=== PATIENT | female | born 1990 | race Two or more races ===

== ENCOUNTER 2018-05-02 10:08 | Emergency (ER) | payer SELFPAY ==
[2018-05-02 10:20] VITALS: TEMP 98; BMI 22.6
--- NOTE | 2018-05-02 10:57 | PDOC ---
History of Present Illness - General Chief Complaint: Pain, Acute Stated Complaint: RT SIDE, ABD PAIN Time Seen by Provider: 05/02/18 10:44 History Source: Patient Exam Limitations: No Limitations - History of Present Illness Initial Comments: CHIEF COMPLAINT: 28 y/o afebrile female with no significant PMH c/o left sided lower abdominal pain since last night. HISTORY OF PRESENT ILLNESS: The patient states the pain started last night. She came here but left because the pain had gone away on its own. She states the pain started again this morning, along with nausea. She denies fever, chills, vomiting, diarrhea, constipation, dysuria, hematuria, abnormal vaginal bleeding/discharge. her LMP was 04/16/18. No PCP Past History - Past Medical History Allergies/Adverse Reactions: Allergies Allergy/AdvReac Type Severity Reaction Status Date / Time No Known Allergies Allergy Verified 05/02/18 10:14 Home Medications: Ambulatory Orders Ibuprofen 600 mg PO TID #15 tablet 05/02/18 Tramadol HCl 50 mg PO TID #10 tablet MDD 4 05/02/18 - Suicide/Smoking/Psychosocial Hx Smoking History: Never smoked Hx Alcohol Use: No Drug/Substance Use Hx: No Substance Use Type: None Review of Systems - Review of Systems Able to Perform ROS?: Yes Is the patient limited Kosovan proficient: Yes Constitutional: No: Chills, Fever HEENTM: No: Nose Congestion Respiratory: No: Cough, Shortness of Breath, Hemoptysis Cardiac (ROS): No: Chest Pain ABD/GI: Yes: Nausea, Other (left sided abdominal pain). No: Constipated, Diarrhea, Vomiting : Yes: Other (decreased urination). No: Dysuria, Hematuria Musculoskeletal: No: Back Pain Neurological: No: Headache *Physical Exam - Vital Signs Last Vital Signs Temp Pulse Resp BP Pulse Ox 98 F 83 20 138/73 99 05/02/18 10:10 05/02/18 10:10 05/02/18 10:10 05/02/18 10:10 05/02/18 10:10 - Physical Exam Comments: The patient is writing around the bed holding her left side in pain. Patient's mom is at bedside General Appearance: Yes: Nourished, Appropriately Dressed HEENT: positive: EOMI, RODERICK Respiratory/Chest: positive: Lungs Clear Cardiovascular: positive: Regular Rhythm, Regular Rate Female Pelvic Exam: positive: normal external exam, adnexal tenderness (very minimal left adnexal tenderness). negative: CMT Gastrointestinal/Abdominal: positive: Guarding, Tenderness (to LLQ with left flank pain ). negative: Distended Musculoskeletal: negative: CVA Tenderness (R), CVA Tenderness (L), Vertebral Tenderness Neurologic: positive: director of financial planning II-XII NML intact, Fully Oriented, Alert ED Treatment Course - LABORATORY CBC & Chemistry Diagram: 05/02/18 11:20 05/02/18 11:25 Medical Decision Making - Medical Decision Making A/P: 28 y/o afebrile female with left lower quadrant abdominal pain since last night. Suspect ovarian cyst vs kidney stone. Patient does admit she's had a decrease in urination. Plan is as follows: 1. labs 2. UA/culture/hcg 3. IV fluids 4. Kidney ultrasound 5. Transvaginal Ultrasound 6. IV Ofirmev Kidney ultrasound IMPRESSION: Mild left hydronephrosis with likely a nonobstructing stone in its midportion measuring 8mm. Transvaginal Ultrasound IMPRESSION: Normal appearing uterus. Both ovaries appear unremarkable without evidence of torsion. Gave patient her results. She states she has no more pain. Will discharge to home with rx for ibuprofen and tramadol. instructed her to drink plenty of fluids. Informed her tramadol can cause drowsiness. Suggested she return to the ER with any worsening or concerning symptoms. The patient verbalizes understanding of all instructions, has no further questions and is awaiting discharge. *DC/Admit/Observation/Transfer Diagnosis at time of Disposition: Kidney stone - Discharge Dispostion Disposition: HOME Condition at time of disposition: Improved - Prescriptions Prescriptions: Ibuprofen 600 mg PO TID #15 tablet Tramadol HCl 50 mg PO TID #10 tablet MDD 4 - Referrals Referrals: Michael Alvarenga MD [Staff Physician] - - Patient Instructions Printed Discharge Instructions: DI for Kidney Stones Additional Instructions: Discharge Instructions: -you have a kidney stone -2 prescriptions have been sent to your pharmacy; one of them may cause drowsiness -Drink at least 64oz of water daily -Follow up with Dr. Olivier within 2 weeks -Return to the ER immediately if symptoms worsen or if you get a fever - Post Discharge Activity
[2018-05-02] MEDS ORDERED: ACETAMINOPHEN 1000 MG/100 ML VIAL (NON FORMULARY) IVPB ONE (10:58)
[2018-05-02] MEDS ORDERED: SODIUM CHLORIDE 1,000 ML IV STA (10:58)
[2018-05-02] MEDS ORDERED: ONDANSETRON 4 MG/2 ML VIAL IVPUSH ONE (11:00)
[2018-05-02] MEDS ORDERED: ONDANSETRON 4 MG/2 ML VIAL ONE (11:05)
[2018-05-02] MEDS ORDERED: ACETAMINOPHEN INJECTION 100 ML IVPB ONE (11:05)
[2018-05-02 11:31] LABS: BASO % 0.4 % (0-2.0); EOS % 0.4 % (0-4.5); HEMATOCRIT 36.8 % (32.4-45.2); LYMPH % 27.4 % (8-40); MCH 29.3 pg (25.7-33.7); MCHC 35.2 g/dl (32.0-36.0); MEAN CELL VOLUME 83.3 fl (80-96); MEAN PLT VOLUME 8.6 fl (7.5-11.1); MONO % 5.9 % (3.8-10.2); NEUT % 65.9 % (42.8-82.8); PLATELET COUNT 266 K/MM3 (134-434); RBC 4.42 M/mm3 (3.60-5.2); RDW 14.2 % (11.6-15.6); WHITE BLOOD COUNT 5.9 K/mm3 (4.0-10.0)
[2018-05-02 11:36] LABS: URINE APPEARANCE CLEAR; URINE BILIRUBIN NEGATIVE (<2.0 mg/dL); URINE COLOR YELLOW; URINE GLUCOSE (UA) NEGATIVE (NEGATIVE); URINE KETONE 2+ (NEGATIVE); URINE LEUK ESTERASE NEGATIVE (NEGATIVE); URINE NITRITE NEGATIVE (NEGATIVE); URINE PROTEIN NEGATIVE (NEGATIVE); URINE UROBILINOGEN NEGATIVE mg/dL (0.2-1.0)
[2018-05-02 11:41] LABS: EPI CELLS RARE /HPF (FEW); URINE BACTERIA RARE /hpf (NONE SEEN); URINE MUCUS RARE
[2018-05-02 11:47] LABS: ALBUMIN 4.1 g/dl (3.4-5.0); ANION GAP 12 (8-16); BLOOD UREA NITROGEN 10 mg/dL (7-18); CALCIUM 9.1 mg/dL (8.5-10.1); CHLORIDE 106 mmol/L (98-107); CO2 22 mmol/L (21-32); CREATININE 1.1 mg/dL (0.55-1.02); GLUCOSE,RANDOM 135 mg/dL (74-106); POTASSIUM 3.8 mmol/L (3.5-5.1); SGOT/AST 16 U/L (15-37); SGPT/ALT 17 U/L (12-78); SODIUM 140 mmol/L (136-145)
[2018-05-02 11:49] LABS: ALK PHOS 44 U/L (45-117); BILIRUBIN,TOTAL 0.6 mg/dL (0.2-1.0); TOT PROT 7.4 g/dl (6.4-8.2)
[2018-05-02] MEDS ORDERED: KETOROLAC TROMETHAMINE 30 MG/1 ML VIAL IVPUSH ONE (12:14)
[2018-05-02] MEDS ORDERED: KETOROLAC TROMETHAMINE 30 MG/1 ML VIAL ONE (12:33)
[2018-05-02 17:03] VITALS: BP 105/45; PULSE 71
== END 2018-05-02 17:03 | disposition home or self-care (01) ==
LOC: JER 10:08
PROC: 3E033NZ Introduction of Analgesics, Hypnotics, Sedatives into Peripheral Vein, Percutaneous Approach (ICD-10-PCS; principal; 2018-05-02)
PROC: 3E0333Z Introduction of Anti-inflammatory into Peripheral Vein, Percutaneous Approach (ICD-10-PCS; 2018-05-02)
PROC: 3E033GC Introduction of Other Therapeutic Substance into Peripheral Vein, Percutaneous Approach (ICD-10-PCS; 2018-05-02)
DX: N13.2 Hydronephrosis with renal and ureteral calculous obstruction (principal)
CPT/HCPCS: 36415; 76775-TC; 76830-TC; 80053; 81003; 81015; 84703; 85025; 87086; 99284-25; J0131; J7030